=== PATIENT | female | born 1985 | race Caucasian/White ===

== ENCOUNTER 2019-03-29 17:08 | Inpatient (IN) | payer SELFPAY ==
[~2019-03-29] VITALS: Ht 162.6 cm; Wt 106.0 kg
[2019-03-29] MEDS ORDERED: TOPI25 PO (17:22)
[2019-03-29] MEDS ORDERED: QUET300T2 PO (17:22)
[2019-03-29] MEDS ORDERED: BUPR-93 PO (17:22)
[2019-03-29] MEDS ORDERED: LITH300C3 PO (17:22)
[2019-03-29] MEDS ORDERED: ARIP5TAB8 PO (17:22)
[2019-03-29] MEDS ORDERED: QUET25TA PO (17:22)
[2019-03-29] MEDS ORDERED: SODIUM CHLORIDE 0.9% 1,000 ML IV ONE ×2 (17:30→18:45)
[2019-03-29] MEDS ORDERED: MAGNESIUM SULFATE 2 GM/WATER 50 ML IV ONE (17:45)
[2019-03-29 18:09] LABS: BASOPHILS % (AUTO) 0.3 % (0.0-2.0); EOSINOPHILS % (AUTO) 0.5 % (1.0-6.0); HEMATOCRIT 36.3 % (36-46); HEMOGLOBIN 12.1 g/dL (12.0-16.0); LYMPHOCYTES # (AUTO) 1.3 K/uL (1.0-4.8); LYMPHOCYTES % (AUTO) 12.3 % (22.0-44.0); MEAN CORPUSCULAR HEMOGLOBIN 30.5 pg (26.0-34.0); MEAN CORPUSCULAR HGB CONC 33.5 G/dL (31.0-37.0); MEAN CORPUSCULAR VOLUME 91 fL (80-100); MONOCYTES # (AUTO) 0.3 K/uL (0.1-1.0); NEUTROPHILS # (AUTO) 8.5 K/uL (1.8-7.7); NEUTROPHILS % (AUTO) 83.9 % (40.0-70.0); PLATELET COUNT (AUTO) 310 K/uL (150-450); RED BLOOD CELL COUNT(AUTO) 3.98 MIL/uL (4.00-5.20); RED CELL DISTRIBUTION WIDTH 14.4 % (11.5-14.5)
[2019-03-29 18:20] LABS: ANION GAP 9 mmol/L (8-16); CALCIUM, TOTAL 8.5 mg/dL (8.8-10.5); CARBON DIOXIDE 24 mmol/L (22-29); CHLORIDE 105 mmol/L (98-107); CREATININE 0.66 mg/dL (0.60-1.30); GLOMERULAR FILTR. RATE CALC > 60 mL/min (>60); GLUCOSE,RANDOM 100 mg/dL (70-110); POTASSIUM 3.3 mmol/L (3.5-5.1); SODIUM SERUM 138 mmol/L (136-145); UREA NITROGEN, BLOOD 10 mg/dL (7-18)
[2019-03-29 18:22] LABS: SALICYLATE < 2.8 mg/dL (2.8-20.0)
[2019-03-29 18:29] LABS: LITHIUM 1.16 mmol/L (0.60-1.20)
[2019-03-29 18:30] LABS: AMPHET/METH SCREEN,URINE NEGATIVE (NEGATIVE); BARBITURATE SCREEN, URINE NEGATIVE (NEGATIVE); BENZODIAZEPINES SCREEN,URINE NEGATIVE (NEGATIVE); CANNABINOID SCREEN,URINE NEGATIVE (NEGATIVE); COCAINE SCREEN,URINE NEGATIVE (NEGATIVE); METHADONE SCREEN, URINE NEGATIVE (NEGATIVE); OPIATE SCREEN,URINE NEGATIVE (NEGATIVE)
[2019-03-29 18:31] LABS: PHENCYCLIDINE SCREEN,URINE NEGATIVE (NEGATIVE)
[2019-03-29 18:33] LABS: ACETAMINOPHEN < 2 mcg/mL (10-30); ALANINE AMINOTRANSFERASE 31 U/L (12-78); ALBUMIN 3.2 g/dL (3.4-5.0); ALKALINE PHOSPHATASE 92 U/L (46-116); ASPARTATE AMINOTRANSFERASE 14 U/L (15-37); BILIRUBIN,TOTAL 0.5 mg/dL (0.1-1.0); HCG,QUANTITATIVE < 1 mIU/mL (0-6); PHOSPHORUS 2.3 mg/dL (2.5-4.9); TOTAL PROTEIN, SERUM 7.1 g/dL (6.4-8.2)
[2019-03-29] MEDS ORDERED: POTASSIUM CHL 10 MEQ/WATER 50 ML IV ONE (18:45)
[2019-03-29 18:47] LABS: VALPROIC ACID < 3 mcg/mL (50-100)
[2019-03-29 18:58] LABS: ABG A-A DIFF O2 10.8 mmHg (10-20.0); ABG BASE EXCESS -8.4 mmol/L (-2.0-3.0); ABG CARBOXYHEMOGLOBIN 0.6 % (0.0-1.5); ABG HCO3 18.6 mmol/L (22.0-26.0); ABG METHEMOGLOBIN 0.1 % (0.0-1.5); ABG OXYGEN CONTENT 16.8 mL/dL (15.0-23.0); ABG OXYGEN SATURATION 97.2 % (95.0-98.0); ABG OXYHEMOGLOBIN 96.5 % (94.0-100.0); ABG PCO2 30 mmHg (35-45); ABG PH 7.365 (7.350-7.450); ABG TOTAL HEMOGLOBIN 12.3 G/dL (12.0-18.0); O2 DEVICE,BLOOD GAS ROOM AIR (ROOM AIR); PO2, ARTERIAL BG 102.6 mmHg (92.0-100.0); SITE, BLOOD GAS RT RADIAL; SOURCE, BLOOD GAS ARTERIAL; TEMPERATURE, FAHRENHEIT, BG 98.6 FAHREN (96.0-98.6)
[2019-03-29 19:53] LABS: ANION GAP 12 mmol/L (8-16); CALCIUM, TOTAL 8.3 mg/dL (8.8-10.5); CARBON DIOXIDE 22 mmol/L (22-29); CHLORIDE 106 mmol/L (98-107); CREATININE 0.69 mg/dL (0.60-1.30); GLOMERULAR FILTR. RATE CALC > 60 mL/min (>60); GLUCOSE,RANDOM 100 mg/dL (70-110); POTASSIUM 3.7 mmol/L (3.5-5.1); SODIUM SERUM 140 mmol/L (136-145); UREA NITROGEN, BLOOD 9 mg/dL (7-18)
[2019-03-29 19:59] LABS: ALANINE AMINOTRANSFERASE 28 U/L (12-78); ALBUMIN 3.1 g/dL (3.4-5.0); ALKALINE PHOSPHATASE 83 U/L (46-116); ASPARTATE AMINOTRANSFERASE 15 U/L (15-37); BILIRUBIN,TOTAL 0.5 mg/dL (0.1-1.0); TOTAL PROTEIN, SERUM 6.6 g/dL (6.4-8.2)
[2019-03-29] MEDS ORDERED: 0.9% SODIUM CHLORIDE 10 ML SYRINGE IVP PRN (20:45)
[2019-03-29] MEDS ORDERED: ACETAMINOPHEN 325 MG TABLET PO PRN (20:45)
[2019-03-30] MEDS ORDERED: ACETAMINOPHEN 325 MG TABLET PO PRN (00:30)
[2019-03-30] MEDS: DOCUSATE SODIUM 100 MG CAPSULE PO SCH ×2 (00:30→09:00)
[2019-03-30] MEDS ORDERED: ONDANSETRON HCL 4 MG/2 ML VIAL IVP PRN (00:30)
[2019-03-30] MEDS ORDERED: 0.9% SODIUM CHLORIDE 10 ML SYRINGE IVP PRN (00:30)
[2019-03-30] MEDS ORDERED: MAGNESIUM HYDROXIDE SUSPENSION 30 ML UDCUP PO PRN (00:30)
[2019-03-30] MEDS: SODIUM CHLORIDE 0.9% 1,000 ML IV SCH ×3 (01:03→18:05)
[2019-03-30 05:51] LABS: ALANINE AMINOTRANSFERASE 25 U/L (12-78); ALKALINE PHOSPHATASE 81 U/L (46-116); ANION GAP 10 mmol/L (8-16); ASPARTATE AMINOTRANSFERASE 12 U/L (15-37); BILIRUBIN,TOTAL 0.4 mg/dL (0.1-1.0); CALCIUM, TOTAL 8.2 mg/dL (8.8-10.5); CARBON DIOXIDE 21 mmol/L (22-29); CHLORIDE 111 mmol/L (98-107); CREATININE 0.59 mg/dL (0.60-1.30); GLOMERULAR FILTR. RATE CALC > 60 mL/min (>60); GLUCOSE,RANDOM 77 mg/dL (70-110); POTASSIUM 3.6 mmol/L (3.5-5.1); SODIUM SERUM 142 mmol/L (136-145); TOTAL PROTEIN, SERUM 6.6 g/dL (6.4-8.2); UREA NITROGEN, BLOOD 5 mg/dL (7-18)
[2019-03-30] MEDS ORDERED: FAMOTIDINE 10 MG/ML 2 ML VIAL IVP SCH (09:00)
[2019-03-30] MEDS ORDERED: DOCUSATE SODIUM 100 MG CAPSULE PO PRN (12:00)
[2019-03-30 15:42] LABS: ANION GAP 9 mmol/L (8-16); CALCIUM, TOTAL 8.5 mg/dL (8.8-10.5); CARBON DIOXIDE 24 mmol/L (22-29); CHLORIDE 111 mmol/L (98-107); CREATININE 0.85 mg/dL (0.60-1.30); GLOMERULAR FILTR. RATE CALC > 60 mL/min (>60); GLUCOSE,RANDOM 106 mg/dL (70-110); POTASSIUM 3.6 mmol/L (3.5-5.1); SODIUM SERUM 144 mmol/L (136-145); UREA NITROGEN, BLOOD 4 mg/dL (7-18)
[2019-03-30 15:43] LABS: LITHIUM 1.17 mmol/L (0.60-1.20)
[2019-03-30] MEDS ORDERED: INFLUENZA VIRUS VACCINE QVS 2019-20 (3YR+)/PF 60 MCG/0.5 ML SYRINGE IM ONE (15:45)
[2019-03-30 16:00] VITALS: BP 110/63
[2019-03-30 19:08] LABS: ANION GAP 9 mmol/L (8-16); CALCIUM, TOTAL 8.4 mg/dL (8.8-10.5); CARBON DIOXIDE 22 mmol/L (22-29); CHLORIDE 111 mmol/L (98-107); CREATININE 0.82 mg/dL (0.60-1.30); GLOMERULAR FILTR. RATE CALC > 60 mL/min (>60); GLUCOSE,RANDOM 110 mg/dL (70-110); POTASSIUM 3.6 mmol/L (3.5-5.1); SODIUM SERUM 142 mmol/L (136-145); UREA NITROGEN, BLOOD 7 mg/dL (7-18)
[2019-03-30 20:00] VITALS: BP 83/46
[2019-03-30] MEDS: FAMOTIDINE 10 MG/ML 2 ML VIAL IVP SCH (21:05)
[2019-03-30 22:33] LABS: LITHIUM 0.76 mmol/L (0.60-1.20)
[2019-03-30 22:40] LABS: ANION GAP 8 mmol/L (8-16); CALCIUM, TOTAL 8.3 mg/dL (8.8-10.5); CARBON DIOXIDE 21 mmol/L (22-29); CHLORIDE 110 mmol/L (98-107); CREATININE 0.67 mg/dL (0.60-1.30); GLOMERULAR FILTR. RATE CALC > 60 mL/min (>60); GLUCOSE,RANDOM 119 mg/dL (70-110); POTASSIUM 3.5 mmol/L (3.5-5.1); SODIUM SERUM 139 mmol/L (136-145); UREA NITROGEN, BLOOD 9 mg/dL (7-18)
[2019-03-31] VITALS: BP 92/63
[2019-03-31 02:29] LABS: ANION GAP 13 mmol/L (8-16); CALCIUM, TOTAL 8.5 mg/dL (8.8-10.5); CARBON DIOXIDE 20 mmol/L (22-29); CHLORIDE 110 mmol/L (98-107); CREATININE 0.78 mg/dL (0.60-1.30); GLOMERULAR FILTR. RATE CALC > 60 mL/min (>60); GLUCOSE,RANDOM 104 mg/dL (70-110); POTASSIUM 3.6 mmol/L (3.5-5.1); SODIUM SERUM 143 mmol/L (136-145); UREA NITROGEN, BLOOD 8 mg/dL (7-18)
[2019-03-31] MEDS: SODIUM CHLORIDE 0.9% 1,000 ML IV SCH ×2 (02:42→09:23)
[2019-03-31 04:00] VITALS: BP 93/44
[2019-03-31 06:38] LABS: ANION GAP 9 mmol/L (8-16); CARBON DIOXIDE 21 mmol/L (22-29); CHLORIDE 112 mmol/L (98-107); CREATININE 0.71 mg/dL (0.60-1.30); GLOMERULAR FILTR. RATE CALC > 60 mL/min (>60); GLUCOSE,RANDOM 103 mg/dL (70-110); POTASSIUM 3.7 mmol/L (3.5-5.1); SODIUM SERUM 142 mmol/L (136-145); UREA NITROGEN, BLOOD 7 mg/dL (7-18)
[2019-03-31 07:22] LABS: BASOPHILS % (AUTO) 0.6 % (0.0-2.0); EOSINOPHILS % (AUTO) 2.1 % (1.0-6.0); HEMATOCRIT 34.9 % (36-46); HEMOGLOBIN 11.7 g/dL (12.0-16.0); MEAN CORPUSCULAR HEMOGLOBIN 30.6 pg (26.0-34.0); MEAN CORPUSCULAR HGB CONC 33.4 G/dL (31.0-37.0); MEAN CORPUSCULAR VOLUME 92 fL (80-100); MONOCYTES % (AUTO) 4.7 % (2.0-9.0); NEUTROPHILS % (AUTO) 70.6 % (40.0-70.0); PLATELET COUNT (AUTO) 278 K/uL (150-450); RED BLOOD CELL COUNT(AUTO) 3.82 MIL/uL (4.00-5.20); RED CELL DISTRIBUTION WIDTH 14.6 % (11.5-14.5)
[2019-03-31 07:23] LABS: LYMPHOCYTES # (AUTO) 1.7 K/uL (1.0-4.8); MONOCYTES # (AUTO) 0.4 K/uL (0.1-1.0); NEUTROPHILS # (AUTO) 5.5 K/uL (1.8-7.7)
[2019-03-31 08:00] VITALS: BP 125/78
[2019-03-31] MEDS: FAMOTIDINE 10 MG/ML 2 ML VIAL IVP SCH (09:23)
[2019-03-31] MEDS ORDERED: BuPROPion HCL XL 150 MG ER TABLET PO SCH (11:00)
[2019-03-31 12:00] VITALS: BP 134/97
[2019-03-31] MEDS ORDERED: LITHIUM CARBONATE 300 MG ER TABLET PO SCH (21:00)
== END 2019-03-31 14:30 | DRG 918 ==
LOC: EMS 17:09 → ICU 03-30 13:19
PROVIDERS: ADMIT Internal Medicine; ATTEND Internal Medicine
DX: T43.592A Poisoning by other antipsychotics and neuroleptics, intentional self-harm, initial encounter (principal); E44.0 Moderate protein-calorie malnutrition; R45.851 Suicidal ideations; Z68.41 Body mass index [BMI] 40.0-44.9, adult; F31.9 Bipolar disorder, unspecified; E87.6 Hypokalemia; Z91.5 Personal history of self-harm; E87.8 Other disorders of electrolyte and fluid balance, not elsewhere classified; Y92.89 Other specified places as the place of occurrence of the external cause; T43.292A Poisoning by other antidepressants, intentional self-harm, initial encounter
CPT/HCPCS: 36600; 82248; 82805; 83735; 84100; 87081; 90686; 93005; 99291; G0378; G0480; G0481; J2405; J3475; J3480; J3490; J7030

== ENCOUNTER 2019-03-31 14:40 | Inpatient (IN) | payer MEDICAID ==
[~2019-03-31] VITALS: Ht 162.6 cm; Wt 103.2 kg
[~2019-03-31 14:40] MED LIST: ARIP5TAB8 PO; BUPR-93 PO; LITH300C3 PO; QUET25TA PO; QUET300T2 PO; TOPI25 PO
[2019-03-31 14:50] VITALS: BP 107/70
[2019-03-31] MEDS ORDERED: LORazepam 2 MG TABLET PO PRN (17:15)
[2019-03-31] MEDS ORDERED: HALOPERIDOL 5 MG TABLET PO PRN (17:15)
[2019-03-31] MEDS ORDERED: ZOLPIDEM TARTRATE 10 MG TABLET PO PRN (17:15)
[2019-03-31] MEDS: FAMOTIDINE 20 MG TABLET PO SCH ×2 (19:05→19:17)
[2019-03-31] MEDS: LITHIUM CARBONATE 300 MG CAPSULE PO SCH (19:17)
[2019-03-31] MEDS ORDERED: ALBUTEROL SULFATE HFA 90 MCG/PUFF 8 GM INHALER IH PRN (19:45)
[2019-03-31] MEDS ORDERED: CloNIDine HCL 0.1 MG TABLET PO PRN (19:45)
[2019-03-31] MEDS ORDERED: GuaiFENesin/D-METHORPHAN [SUGAR-FREE] 200-20MG/10 ML SYRUP UDCUP PO PRN (19:45)
[2019-03-31] MEDS ORDERED: NICOTINE 14 MG/24 HOUR PATCH TD PRN (19:45)
[2019-03-31] MEDS ORDERED: ACETAMINOPHEN 325 MG TABLET PO PRN (19:45)
[2019-03-31] MEDS ORDERED: DOCUSATE SODIUM 100 MG CAPSULE PO PRN (19:45)
[2019-03-31] MEDS ORDERED: LOPERAMIDE HCL 2 MG CAPSULE PO PRN (19:45)
[2019-03-31] MEDS ORDERED: MAGNESIUM HYDROXIDE SUSPENSION 30 ML UDCUP PO PRN (19:45)
[2019-03-31] MEDS ORDERED: IBUPROFEN 400 MG TABLET PO PRN (19:45)
[2019-03-31] MEDS ORDERED: MAG HYDROX/AL HYDROX/SIMETH ES 30 ML SUSPENSION UDCUP PO PRN (19:45)
[2019-03-31] MEDS ORDERED: ONDANSETRON HCL 4 MG TABLET PO PRN (19:45)
[2019-03-31] MEDS ORDERED: PETROLATUM,WHITE 28 GM JELLY TP PRN (19:45)
[2019-03-31] MEDS ORDERED: PNEUMOCOCCAL VACCINE POLYVALENT 0.5 ML VIAL [PPSV23] IM ONE (22:30)
[2019-03-31] MEDS ORDERED: INFLUENZA VIRUS VACCINE QVS 2019-20 (3YR+)/PF 60 MCG/0.5 ML SYRINGE IM ONE (22:30)
[2019-04-01] MEDS: BuPROPion HCL XL 150 MG ER TABLET PO SCH (08:44)
[2019-04-01] MEDS: LITHIUM CARBONATE 300 MG CAPSULE PO SCH ×2 (08:44→16:32)
[2019-04-01] MEDS: FAMOTIDINE 20 MG TABLET PO SCH ×2 (08:44→16:32)
[2019-04-01 09:00] VITALS: BP 140/62
[2019-04-01 17:53] VITALS: BP 138/91
[2019-04-01] MEDS ORDERED: QUEtiapine FUMARATE 25 MG TABLET PO SCH (21:00)
[2019-04-02] MEDS: BuPROPion HCL XL 150 MG ER TABLET PO SCH (08:27)
[2019-04-02] MEDS: LITHIUM CARBONATE 300 MG CAPSULE PO SCH ×2 (08:27→16:18)
[2019-04-02 08:30] VITALS: BP 107/64
[2019-04-02] MEDS: FAMOTIDINE 20 MG TABLET PO SCH ×2 (08:31→16:17)
[2019-04-02] MEDS ORDERED: FAMO20 PO (12:30)
[2019-04-02 16:52] VITALS: BP 124/75
== END 2019-04-02 19:20 | disposition home or self-care (01) | DRG 881 ==
LOC: 3EI 14:40
PROVIDERS: ADMIT Psychiatry & Neurology Psychiatry; ATTEND Psychiatry & Neurology Psychiatry
PROC: 3E0234Z Introduction of Serum, Toxoid and Vaccine into Muscle, Percutaneous Approach (ICD-10-PCS; principal; 2019-04-01)
DX: F32.9 Major depressive disorder, single episode, unspecified (principal); E83.51 Hypocalcemia; D64.9 Anemia, unspecified; F10.10 Alcohol abuse, uncomplicated; Y90.9 Presence of alcohol in blood, level not specified; J45.909 Unspecified asthma, uncomplicated; Z62.810 Personal history of physical and sexual abuse in childhood; Z63.9 Problem related to primary support group, unspecified; Z23 Encounter for immunization
CPT/HCPCS: 90686; 90732

== ENCOUNTER 2023-08-01 19:15 | Emergency (ER) | payer MEDICAID, OTHER ==
[~2023-08-01] VITALS: Ht 162.6 cm; Wt 127.0 kg
[~2023-08-01 19:15] MED LIST changes: -ARIP5TAB8 PO; +BUPR-50 PO; -BUPR-93 PO; +FAMO20 PO; -QUET300T2 PO; -TOPI25 PO
[2023-08-01 19:26] VITALS: TEMP 98
[2023-08-01] MEDS ORDERED: IBUP-1554 PO (21:48)
[2023-08-01] MEDS ORDERED: PSEU-191 PO (21:48)
[2023-08-01] MEDS ORDERED: DIPH50CA37 PO (21:48)
[2023-08-01] MEDS ORDERED: GUAIFDM PO (21:48)
[2023-08-01] MEDS ORDERED: ACET-66 PO (21:48)
[2023-08-01] MEDS: DiphenhydrAMINE HCL 25 MG CAPSULE PO ONE (21:52)
[2023-08-01] MEDS: ACETAMINOPHEN 500 MG TABLET PO ONE (21:52)
[2023-08-01] MEDS: GuaiFENesin/D-METHORPHAN [SUGAR-FREE] 200-20MG/10 ML SYRUP UDCUP PO ONE (21:52)
[2023-08-01 21:58] VITALS: BP 122/73; PULSE 72; RESP 16
== END 2023-08-01 21:58 | disposition home or self-care (01) ==
LOC: EMS 19:15
DX: J06.9 Acute upper respiratory infection, unspecified (principal); H92.02 Otalgia, left ear; F31.9 Bipolar disorder, unspecified
CPT/HCPCS: 99284; Z7502; Z7610